=== PATIENT | male | born 1960 | race Caucasian/White ===

== ENCOUNTER 2017-02-12 21:56 | Emergency (ER) | payer OTHER ==
[~2017-02-12] VITALS: Ht 180.3 cm; Wt 79.0 kg
[~2017-02-12 21:56] MED LIST: ADVIL200 MG PO; ASPIR-LOW81 MG PO; ASPIR-TRIN325 M1 PO; ATORVASTATIN CA20 MG PO; ATORVASTATIN CA40 MG PO; FLOMAX0.4 MG PO; GLUCOPHAGE1000 MG PO; GLUCOPHAGE500 MG PO; Glucophage PO; HUMALOG MI100 UNIT/6 SC; LIPITOR40 MG PO; LISINOPRIL20 MG PO; LISINOPRIL40 MG PO; LITE COAT ASPI325 M1 PO; MELOXICAM7.5 MG PO; METFORMIN HCL1000 MG PO; METOPROLOL TART25 MG PO; NICOTINE PATCH1 EAC2 TD; NITROSTAT0.4 MG SL; NOVOLOG MI100 UNIT/M SC; NovoLOG Mix 70/30 Vi SC; ONE TOUCH ULTR1 EAC4 MC; PERCOCET 5/31 TABLET PO; PRINIVIL20 MG PO; Rocephin IV; VENTOLIN HFA18 GM IH; Zestril,Prinivil PO
[2017-02-12 23:21] VITALS: BP 189/84
[2017-02-12] MEDS ORDERED: UNABLE TO RECALL (23:21)
== END 2017-02-12 23:26 | disposition home or self-care (01) ==
LOC: EME 21:56
DX: S90.31XA Contusion of right foot, initial encounter (principal); S90.811A Abrasion, right foot, initial encounter; F17.200 Nicotine dependence, unspecified, uncomplicated
CPT/HCPCS: 73630; 99281; 99284

== ENCOUNTER 2017-07-15 21:21 | Observation (INO) | payer OTHER ==
[~2017-07-15] VITALS: Ht 180.3 cm; Wt 80.1 kg
[~2017-07-15 21:21] MED LIST changes: +UNABLE TO RECALL
[2017-07-15 22:22] LABS: HEMATOCRIT 40.8 % (38.0-50.0); HEMOGLOBIN 14.5 G/DL (12.5-16.6); MCH 31.1 PG (29.0-34.0); MCHC 35.5 G/DL (30.0-36.0); MCV 87.6 FL (86-99); PLATELET COUNT 169 K/uL (156-360); RBC DIS.WIDTH-CV 12.2 % (11.8-14.6); RBC DIS.WIDTH-SD 39.2 % (39-53); RED BLOOD COUNT 4.66 M/uL (4.00-5.50); WHITE BLOOD COUNT 8.7 K/uL (4.1-10.2)
[2017-07-15 22:36] LABS: ALBUMIN 3.1 g/dL (3.2-4.8); CHLORIDE 98 mEq/L (99-109); POTASSIUM 4.1 mEq/L (3.7-5.4)
[2017-07-15 22:37] LABS: SODIUM 133 mEq/L (136-147)
[2017-07-15 22:39] LABS: TOTAL PROTEIN 5.7 g/dL (6.4-8.3)
[2017-07-15 22:41] LABS: TOTAL BILIRUBIN 0.2 mg/dL (0.0-1.0)
[2017-07-15 22:42] LABS: ALKALINE PHOSPHATASE 102 IU/L (3-129); SERUM ETHYL ALCOHOL < 10 mg/dL
[2017-07-15 22:43] LABS: CREATININE 1.6 mg/dL (0.6-1.3); GFR ESTIMATE (CALCULATED) 48 mL/min/ (58.99-99999)
[2017-07-15 22:44] LABS: AST (GOT) 9 IU/L (2-34); DIRECT BILIRUBIN 0.1 mg/dL (0.0-0.3); UREA NITROGEN (BUN) 28 mg/dL (9-23)
[2017-07-15 22:46] LABS: ALT (GPT) 14 IU/L (3-49)
[2017-07-15 22:47] LABS: TROP-I INTERPRETATION NEGATIVE; TROPONIN-I 0.04 ng/mL (0.0-0.30)
[2017-07-15 22:51] LABS: GLUCOSE 510 mg/dL (70-99)
[2017-07-15] MEDS ORDERED: LOPRESSOR50 MG PO (23:05)
[2017-07-15] MEDS ORDERED: VENTOLIN HFA18 GM IH (23:05)
[2017-07-15] MEDS ORDERED: HUMALOG MI100 UNIT/6 SC (23:06)
[2017-07-15] MEDS ORDERED: METFORMIN HCL1000 MG PO (23:07)
[2017-07-16 00:34] VITALS: BP 151/72
[2017-07-16 03:23] VITALS: BP 130/58
[2017-07-16 05:36] LABS: HDL CHOLESTEROL 33 MG/DL (Desirable>=40); LDL CHOLESTEROL 91 mg/dL (Desirable<100); NON-HDL CHOLESTEROL 130 mg/dL (Desirable<160); TOTAL CHOLESTEROL 163 mg/dL (Desirable<200); TRIGLYCERIDES 196 MG/DL (Normal: <150)
[2017-07-16 05:37] LABS: TROP-I INTERPRETATION NEGATIVE; TROPONIN-I 0.04 ng/mL (0.0-0.30)
[2017-07-16 07:57] VITALS: BP 132/66
[2017-07-16 11:49] LABS: TROP-I INTERPRETATION NEGATIVE; TROPONIN-I 0.03 ng/mL (0.0-0.30)
[2017-07-16 12:34] LABS: HEMOGLOBIN A1c (GLYCOHEMOGLOB) 12.4 % (Below 5.7)
[2017-07-16 12:48] LABS: CHLORIDE 102 MEQ/L (99-109); CREATININE 1.2 MG/DL (0.6-1.3); GFR ESTIMATE (CALCULATED) > 59 mL/min/ (58.99-99999); POTASSIUM 3.7 MEQ/L (3.7-5.4); SODIUM 133 MEQ/L (136-147); UREA NITROGEN (BUN) 28 mg/dL (9-23)
[2017-07-16 13:00] LABS: GLUCOSE 120 mg/dL (70-99)
[2017-07-16 13:04] VITALS: BP 134/69
[2017-07-16 13:07] LABS: APPEARANCE SL.HAZY ((CLEAR)); BILIRUBIN NEGATIVE; BLOOD SMALL; COLOR YELLOW ((YELLOW)); GLUCOSE (STRIP) >=500; KETONES NEGATIVE; LEUKOCYTES NEGATIVE; NITRITE NEGATIVE; PROTEIN (STRIP) 100; SPECIFIC GRAVITY 1.008 (1.000-1.030); UROBILINOGEN 0.2 MG/DL (0.2-1.0)
[2017-07-16 13:26] LABS: BACTERIA RARE /HPF; EPITHELIAL CELLS RARE /HPF; HYALINE CASTS 0-5 /LPF; MUCUS TRACE /LPF; RED BLOOD CELLS 0-5 /HPF (0-5); UCUL ADDED? NO; WHITE BLOOD CELLS 0-5 /HPF (0-5)
[2017-07-16] MEDS ORDERED: INSULIN SYRING1 EA53 MC (13:42)
[2017-07-16] MEDS ORDERED: 1ST TIER UNILE1 EAC1 MC (13:42)
[2017-07-16] MEDS ORDERED: NICOTINE PATCH1 EAC2 TD (13:42)
[2017-07-16] MEDS ORDERED: LANTUS 10100 UNITS/ SC (13:42)
[2017-07-16] MEDS ORDERED: GLUCOMETER MC (13:42)
[2017-07-16] MEDS ORDERED: NOVOLOG 10100 UNITS/ SC (13:42)
== END 2017-07-16 16:39 | disposition home or self-care (01) ==
LOC: EME 21:21 → EDOF 23:22 → 5WEST 23:22 → ENRESERV 23:24 → 5WEST 07-16 00:23
PROVIDERS: Emergency Medicine; Hospitalist; Physician Assistant Medical
DX: R07.89 Other chest pain (principal); R94.31 Abnormal electrocardiogram [ECG] [EKG]; G45.9 Transient cerebral ischemic attack, unspecified; N17.9 Acute kidney failure, unspecified; F17.210 Nicotine dependence, cigarettes, uncomplicated; I69.354 Hemiplegia and hemiparesis following cerebral infarction affecting left non-dominant side; Z91.19 Patient's noncompliance with other medical treatment and regimen; Z91.14 Patient's other noncompliance with medication regimen; I10 Essential (primary) hypertension; R07.9 Chest pain, unspecified; E11.65 Type 2 diabetes mellitus with hyperglycemia; Z79.4 Long term (current) use of insulin; Z79.82 Long term (current) use of aspirin; E78.5 Hyperlipidemia, unspecified; I65.23 Occlusion and stenosis of bilateral carotid arteries; J44.9 Chronic obstructive pulmonary disease, unspecified; I27.20 Pulmonary hypertension, unspecified; K21.9 Gastro-esophageal reflux disease without esophagitis; N40.0 Benign prostatic hyperplasia without lower urinary tract symptoms; E87.1 Hypo-osmolality and hyponatremia; G40.909 Epilepsy, unspecified, not intractable, without status epilepticus; E11.42 Type 2 diabetes mellitus with diabetic polyneuropathy; Z88.5 Allergy status to narcotic agent
CPT/HCPCS: 70450; 70551; 71046; 80048; 80061; 80076; 81003; 82948; 83036; 84484; 85027; 92610 GN; 93005; 93306; 93880; 99202; 99281; 99285; G0378; G0480; G8996 GN CI; G8997 GN CI; G8998 GN CI; J1644; J1815; J7030